=== PATIENT | female | born 1965 | race Caucasian/White ===

== ENCOUNTER → 2017-06-02 | Outpatient (CLI) | payer BC | END | disposition home or self-care (01) | LOC: LABWHC1 16:23 | PROVIDERS: ATTEND Obstetrics & Gynecology | DX: N93.8 Other specified abnormal uterine and vaginal bleeding (principal) | CPT/HCPCS: 36415; 82670; 83001; 83002; 84443 ==

== ENCOUNTER → 2017-08-04 | Outpatient (CLI) | payer BC ==
--- NOTE | 2017-08-06 09:18 | MM ---
Reason for exam: screening (asymptomatic). Last mammogram was performed 1 year and 2 months ago. History: Patient has history of other cancer at age 46. Family history of premenopausal breast cancer in maternal aunt at age 50. Took hormonal contraceptives for 2 years beginning at age 30. Physical Findings: A clinical breast exam by your physician is recommended on an annual basis and results should be correlated with mammographic findings. MG 3D Screening Mammo W/Cad Bilateral CC and MLO view(s) were taken. Prior study comparison: June 02, 2016, bilateral MG 3d screening mammo w/cad. June 01, 2015, right breast MG 3d work up w/cad RT. There are scattered fibroglandular densities. No significant changes when compared with prior studies. ASSESSMENT: Negative, BI-RAD 1 RECOMMENDATION: Routine screening mammogram of both breasts in 1 year.
== END | disposition home or self-care (01) ==
LOC: RADMAMWWP 13:13
PROVIDERS: ATTEND Obstetrics & Gynecology
DX: Z12.31 Encounter for screening mammogram for malignant neoplasm of breast (principal)
CPT/HCPCS: 77063; 77067

== ENCOUNTER → 2018-09-13 | Outpatient (CLI) | payer BC ==
--- NOTE | 2018-09-14 13:48 | MM ---
Reason for exam: screening (asymptomatic). Last mammogram was performed 1 year and 1 month ago. History: Patient is postmenopausal and has history of other cancer at age 46. Family history of premenopausal breast cancer in maternal aunt at age 50. Took hormonal contraceptives for 2 years beginning at age 30. Physical Findings: A clinical breast exam by your physician is recommended on an annual basis and results should be correlated with mammographic findings. MG 3D Screening Mammo W/Cad Bilateral CC and MLO view(s) were taken. Prior study comparison: August 04, 2017, bilateral MG 3d screening mammo w/cad. June 02, 2016, bilateral MG 3d screening mammo w/cad. There are scattered fibroglandular densities. No significant changes when compared with prior studies. ASSESSMENT: Benign, BI-RAD 2 RECOMMENDATION: Routine screening mammogram of both breasts in 1 year.
== END | disposition home or self-care (01) ==
LOC: RADMAMWWP 16:55
PROVIDERS: ATTEND Internal Medicine
DX: Z12.31 Encounter for screening mammogram for malignant neoplasm of breast (principal)
CPT/HCPCS: 77063; 77067

== ENCOUNTER → 2019-07-01 | Outpatient (CLI) | payer BC ==
--- NOTE | 2019-07-01 12:03 | XR ---
EXAMINATION TYPE: XR chest 2V DATE OF EXAM: 07/01/2019 COMPARISON: NONE HISTORY: Cough TECHNIQUE: Frontal and lateral views of the chest are obtained. FINDINGS: There is no focal air space opacity, pleural effusion, or pneumothorax seen. The cardiac silhouette size is within normal limits. The osseous structures are intact. IMPRESSION: No acute cardiopulmonary process.
== END | disposition home or self-care (01) ==
LOC: RADXRMAIN 10:12
PROVIDERS: ATTEND Internal Medicine
DX: R05 Cough (principal)
CPT/HCPCS: 71046

== ENCOUNTER → 2019-12-13 | Outpatient (CLI) | payer BC ==
--- NOTE | 2019-12-15 08:35 | MM ---
Reason for exam: screening (asymptomatic). Last mammogram was performed 1 year and 3 months ago. History: Patient is postmenopausal and has history of other cancer at age 46. Family history of premenopausal breast cancer in maternal aunt at age 50. Took hormonal contraceptives for 2 years beginning at age 30. Physical Findings: A clinical breast exam by your physician is recommended on an annual basis and results should be correlated with mammographic findings. MG 3D Screening Mammo W/Cad Bilateral CC and MLO view(s) were taken. Prior study comparison: September 13, 2018, bilateral MG 3d screening mammo w/cad. August 04, 2017, bilateral MG 3d screening mammo w/cad. There are scattered fibroglandular densities. Finding: There is a 7 mm equal density (isodense), obscured mass in the lower quadrant of the left breast. ASSESSMENT: Incomplete: need additional imaging evaluation, BI-RAD 0 RECOMMENDATION: Special view mammogram of the left breast. If lesion persists on supplemental views, image directed ultrasound is recommended. [facility] will attempt to contact patient to return for supplemental views and ultrasound if indicated.
== END | disposition home or self-care (01) ==
LOC: RADMAMWWP 13:15
PROVIDERS: ATTEND Internal Medicine
DX: Z12.31 Encounter for screening mammogram for malignant neoplasm of breast (principal)
CPT/HCPCS: 77063; 77067

== ENCOUNTER → 2019-12-14 | Outpatient (CLI) | payer BC ==
--- NOTE | 2019-12-15 09:45 | XR ---
EXAMINATION TYPE: XR cervical spine limited DATE OF EXAM: 12/14/2019 COMPARISON: NONE HISTORY: Numbness TECHNIQUE: 2 view submitted FINDINGS: Prevertebral soft tissues to appears within normal limits. There is multilevel hypertrophic and degenerative disc disease. There is a 2 mm retrolisthesis of C3 relative to C4. Alignment demons trated to the level C7. Multilevel facet arthropathy noted. Odontoid grossly intact. IMPRESSION: 1. Limited exam to the level C7 demonstrates multilevel degenerative disc disease as discussed above. 2 mm retrolisthesis of C3 relative to C4. Consider MRI follow-up.
--- NOTE | 2019-12-15 09:55 | XR ---
EXAMINATION TYPE: XR thoracic spine 2V DATE OF EXAM: 12/14/2019 COMPARISON: NONE HISTORY: Pain TECHNIQUE: 2 views submitted FINDINGS: Alignment is anatomic. There is no compression deformities. Vertebral body height and disc interspa lindy are maintained. Diffuse osteopenia and degenerative change of the spine. Curvature the spine not ed. IMPRESSION: 1. Exam limited by motion artifact demonstrates multilevel moderate degenerative disc disease.
== END | disposition home or self-care (01) ==
LOC: RADXRYALE 15:48
PROVIDERS: ATTEND Internal Medicine
DX: M50.90 Cervical disc disorder, unspecified, unspecified cervical region (principal); M50.323 Other cervical disc degeneration at C6-C7 level; M43.16 Spondylolisthesis, lumbar region; M51.34 Other intervertebral disc degeneration, thoracic region
CPT/HCPCS: 72040; 72070

== ENCOUNTER → 2019-12-21 | Outpatient (CLI) | payer BC ==
--- NOTE | 2019-12-22 09:44 | MM ---
Reason for exam: additional evaluation requested from abnormal screening. Last mammogram was performed less than 1 month ago. History: Patient is postmenopausal and has history of other cancer at age 46. Family history of premenopausal breast cancer in maternal aunt at age 50. Took hormonal contraceptives for 2 years beginning at age 30. Took progesterone for 3 years. Physical Findings: Nurse did not find any significant physical abnormalities on exam. MG 3D Work Up W/Cad LT Spot compression CC, spot compression MLO, and LM view(s) were taken of the left breast. Prior study comparison: December 13, 2019, bilateral MG 3d screening mammo w/cad. September 13, 2018, bilateral MG 3d screening mammo w/cad. August 04, 2017, bilateral MG 3d screening mammo w/cad. June 02, 2016, bilateral MG 3d screening mammo w/cad. There are scattered fibroglandular densities. 9 o'clock anterior focal asymmetry appears to disperse on the spot 3D CC view. Partially disperses on the spot 3D MLO view. No underlying mass or distortion is seen. May have been present on the 2014 exam. These results were verbally communicated with the patient and result sheet given to the patient on 12/21/19. ASSESSMENT: Probably benign, BI-RAD 3 RECOMMENDATION: Follow-up diagnostic mammogram of the left breast in 6 months.
== END | disposition home or self-care (01) ==
LOC: RADMAMWWP 14:53
PROVIDERS: ATTEND Internal Medicine
DX: R92.8 Other abnormal and inconclusive findings on diagnostic imaging of breast (principal)
CPT/HCPCS: 77061; 77065

== ENCOUNTER → 2020-06-06 | Outpatient (CLI) | payer BC | END | disposition home or self-care (01) | LOC: LABWHC1 11:34 | PROVIDERS: ATTEND Internal Medicine Cardiovascular Disease | DX: E03.9 Hypothyroidism, unspecified (principal) | CPT/HCPCS: 36415; 84443 ==

== ENCOUNTER → 2020-08-09 | Outpatient (CLI) | payer BC ==
--- NOTE | 2020-08-10 10:39 | MM ---
Reason for exam: follow-up at short interval from prior study. Last mammogram was performed 8 months ago. History: Patient is postmenopausal and has history of other cancer at age 46. Family history of premenopausal breast cancer in maternal aunt at age 50. Took hormonal contraceptives for 2 years beginning at age 30. Took progesterone for 3 years. Physical Findings: Nurse did not find any significant physical abnormalities on exam. MG 3D Diag Mammo W/Cad LT CC and MLO view(s) were taken of the left breast. Prior study comparison: December 21, 2019, left breast MG 3d work up w/cad LT. December 13, 2019, bilateral MG 3d screening mammo w/cad. There are scattered fibroglandular densities. Focal asymmetry No significant new findings when compared with previous films. These results were verbally communicated with the patient and result sheet given to the patient on 08/09/20. ASSESSMENT: Benign, BI-RAD 2 RECOMMENDATION: Return to routine screening mammogram schedule for both breasts.
== END | disposition home or self-care (01) ==
LOC: RADMAMWWP 13:35
PROVIDERS: ATTEND Internal Medicine
DX: R92.8 Other abnormal and inconclusive findings on diagnostic imaging of breast (principal)
CPT/HCPCS: 77061; 77065

== ENCOUNTER → 2020-12-19 | Outpatient (CLI) | payer BC ==
--- NOTE | 2020-12-21 10:43 | MM ---
Reason for exam: screening (asymptomatic). Last mammogram was performed 4 months ago. History: Patient is postmenopausal and has history of other cancer at age 46. Family history of premenopausal breast cancer in maternal aunt at age 50. Took hormonal contraceptives for 2 years beginning at age 30. Took progesterone for 3 years. Physical Findings: A clinical breast exam by your physician is recommended on an annual basis and results should be correlated with mammographic findings. MG Screening Mammo w CAD Bilateral CC and MLO view(s) were taken. Prior study comparison: December 13, 2019, bilateral MG 3d screening mammo w/cad. September 13, 2018, bilateral MG 3d screening mammo w/cad. August 04, 2017, bilateral MG 3d screening mammo w/cad. The breast tissue is almost entirely fat. No significant changes when compared with prior studies. ASSESSMENT: Benign, BI-RAD 2 RECOMMENDATION: Routine screening mammogram of both breasts in 1 year.
== END | disposition home or self-care (01) ==
LOC: RADMAMWWP 09:57
PROVIDERS: ATTEND Internal Medicine
DX: Z12.31 Encounter for screening mammogram for malignant neoplasm of breast (principal)
CPT/HCPCS: 77067

== ENCOUNTER → 2021-10-03 | Outpatient (CLI) | payer BC | END | disposition home or self-care (01) | LOC: LABWHC1 14:24 | PROVIDERS: ATTEND Internal Medicine Cardiovascular Disease | DX: R61 Generalized hyperhidrosis (principal) | CPT/HCPCS: 36415; 87040; 87103 ==

== ENCOUNTER → 2021-12-31 | Outpatient (CLI) | payer BC ==
--- NOTE | 2022-01-02 07:28 | MM ---
Reason for Exam: Screening (asymptomatic). Last screening mammogram was performed 12 month(s) ago. Patient History: Menarche at age 11. First Full-Term at age 20. Left ovary removed at age 51. Right ovary removed at age 51. Hysterectomy at age 47. Postmenopausal. Other cancer, age 46. Patient used Progesterone for 3 years. Hormonal Contraceptives, starting at age 30 for 2 years. Maternal aunt had breast cancer, age 50. Risk Values: Emily 5 year model risk: 1.2%. NCI Lifetime model risk: 6.9%. Prior Study Comparison: 12/21/2019 Left Diagnostic Mammogram, [facility]. 08/09/2020 Left Diagnostic Mammogram, [facility]. 12/19/2020 Bilateral Screening Mammogram, [facility]. Tissue Density: The breast tissue is almost entirely fat. Findings: Analyzed By CAD. There is no suspicious group of microcalcifications or new suspicious mass in either breast. Overall Assessment: Negative, BI-RAD 1 Management: Screening Mammogram of both breasts in 1 year. A clinical breast exam by your physician is recommended on an annual basis and results should be correlated with mammographic findings. Electronically signed and approved by: Sam De La Vega M.D. Radiologis
== END | disposition home or self-care (01) ==
LOC: RADMAMWWP 16:26
PROVIDERS: ATTEND Internal Medicine
DX: Z12.31 Encounter for screening mammogram for malignant neoplasm of breast (principal)
CPT/HCPCS: 77063; 77067

== ENCOUNTER → 2022-10-01 | Outpatient (CLI) | payer BC ==
[2022-10-01 21:51] LABS: Partial Thromboplastin Time 23.1 sec (22.0-30.0); Prothrombin Time 10.3 sec (9.0-12.0)
[2022-10-01 23:15] LABS: Appearance,Urine Clear (Clear); Bilirubin,Urine Negative (Negative); Blood,Urine Negative (Negative); Color,Urine Yellow (Yellow); Ketones,Urine Negative (Negative); Nitrite,Urine Negative (Negative); Specific Gravity,Urine 1.022 (1.001-1.030); Urobilinogen,Urine 0.2 (0.2,1.0)
[2022-10-01 23:22] LABS: Bacteria,Urine Trace /HPF (None Seen)
[2022-10-01 23:35] LABS: HCT 42.7 % (37.2-46.3); HGB 13.7 g/dL (12.0-15.0); MCH 30.3 pg (27.0-32.0); MCHC 32.1 g/dL (32.0-37.0); MCV 94.5 fL (80.0-97.0); Mean Platelet Volume 9.5 fL (9.5-12.2); NRBC Per 100 WBC 0 /100 WBCS (0.0-0.0); Platelet Count 311 X 10*3/uL (140-440); RBC 4.52 X 10*6/uL (4.10-5.20); RDW 12.3 % (11.5-14.5); WBC 7.31 X 10*3/uL (4.50-10.00)
[2022-10-01 23:49] LABS: African American GFR (CKD) 68.6 (60.0-200.0); Albumin 4.2 g/dL (3.8-4.9); Albumin/Globulin Ratio 1.79 (1.60-3.17); BUN/Creat Ratio 8.91 Ratio (12.00-20.00); Blood Urea Nitrogen 9.3 mg/dL (9.0-27.0); Calcium 9.3 mg/dL (8.7-10.3); Carbon Dioxide 26.8 mmol/L (20.0-27.5); Globulin 2.4 g/dL (1.6-3.3); Non-African American GFR(CKD) 59.2 (60.0-200.0); Potassium 3.8 mmol/L (3.5-5.5); Total Bilirubin 0.2 mg/dL (0.30-1.20); Total Protein 6.6 g/dL (6.2-8.2)
== END | disposition home or self-care (01) ==
LOC: LABPAT 14:22
PROVIDERS: ATTEND Orthopaedic Surgery
DX: Z01.812 Encounter for preprocedural laboratory examination (principal); M16.11 Unilateral primary osteoarthritis, right hip
CPT/HCPCS: 80053; 81001; 85027; 85610; 85730; 87070

== ENCOUNTER 2022-10-07 09:08 | Observation (INO) | payer BC ==
[~2022-10-07 09:08] MED LIST: ACETAMINOPHEN TAB 500 MG TAB PO PRN; DEXAMETHASONE SOD PHOSPHATE 4 MG/ML 1 ML VIAL IV ONE; GABAPENTIN 300 MG CAP PO PRN; HYDROmorphone 0.5 MG/0.5 ML SYRINGE IVP PRN; LIDOCAINE 1% (10MG/ML) FOR IV START INTRADERMA PRN; MELOXICAM 7.5 MG TAB PO PRN; MIDAZOLAM 2 MG/2 ML VIAL IV PRN; ONDANSETRON 4 MG/2 ML VIAL IVP ONE; TRANEXAMIC ACID IN NACL,ISO-OS 1,000 MG in SALINE 1 100ML.BAG IVPB PRN
[2022-10-07] MEDS: LACTATED RINGERS 1,000 ML IV SCH (10:00)
[2022-10-07 10:11] LABS: Glucose,Whole Blood 94 mg/dL (70-110)
[2022-10-07] MEDS ORDERED: PHENYLEPHRINE-0.9% NACL SYG 1,000 MCG/10 ML SYRINGE ONE (10:26)
[2022-10-07] MEDS ORDERED: DEXAMETHASONE SOD PHOSPHATE 4 MG/ML 1 ML VIAL ONE (10:26)
[2022-10-07] MEDS ORDERED: fentaNYL (PF) 50 MCG/ML 2 ML AMP ONE (10:26)
[2022-10-07] MEDS ORDERED: ROPIVACAINE 5 MG/ML 30 ML VIAL ONE (10:26)
[2022-10-07] MEDS ORDERED: TRANEXAMIC ACID IN NACL,ISO-OS 1,000 MG/100 ML BAG ONE (10:26)
[2022-10-07] MEDS ORDERED: KETAMINE 10 MG/ML 20 ML VIAL ONE (10:26)
[2022-10-07] MEDS ORDERED: PROPOFOL 10 MG/ML 20 ML VIAL IV ONE (10:26)
[2022-10-07] MEDS ORDERED: MIDAZOLAM 2 MG/2 ML VIAL ONE (10:26)
[2022-10-07] MEDS ORDERED: ePHEDrine 50 MG/ML 1 ML VIAL ONE (10:26)
[2022-10-07] MEDS ORDERED: HYDROmorphone 1 MG/ML 1 ML SYRINGE IVP PRN (10:29)
[2022-10-07] MEDS ORDERED: HYDROmorphone 0.5 MG/0.5 ML SYRINGE IVP PRN ×2 (10:29)
[2022-10-07] MEDS ORDERED: NALOXONE 0.4 MG/ML 1 ML VIAL IV PRN (10:29)
[2022-10-07] MEDS ORDERED: ONDANSETRON 4 MG/2 ML VIAL IVP PRN (10:29)
[2022-10-07] MEDS ORDERED: HYDROcodone/APAP 7.5-325MG 1 EACH TAB PO PRN (10:32)
[2022-10-07] MEDS ORDERED: ceFAZolin 1,000 MG in SODIUM CHLORIDE 0.9% 1,000 ML IRRIGATION ONE (11:00)
[2022-10-07] MEDS ORDERED: ROPIVACAINE 5 MG/ML 30 ML VIAL MISCELLANE ONE ×2 (11:10→12:05)
--- NOTE | 2022-10-07 12:13 | P.OP ---
Date of Procedure: 10/07/22 Preoperative Diagnosis: Severe osteoarthritis right Postoperative Diagnosis: Severe osteoarthritis right hip Procedure(s) Performed: Right total hip arthroplasty with a direct anterior approach Implants: [employer] Polarstem standard size 2 with a collar [employer] R3, 3 hole hemispherical acetabular shell, 52 mm [employer] Reflection 6.5 mm cancellus screw, 20 mm 2, 15 mm [employer] R3, XLPE 20 acetabular liner [employer] Oxinium femoral head 36 m, -3 All components were press-fit. The articulation is Oxinium on polyethylene. Anesthesia: spinal Surgeon: Elvis Oseguera Plate Molder #1: Yanely Mott Estimated Blood Loss (ml): 400 Pathology: other (Femoral head) Condition: stable Disposition: PACU Indications for Procedure: After failure of conservative treatment we discussed the surgical and nonsurgical treatment options at length. Patient wishes to proceed with a total hip arthroplasty with a direct anterior approach. Complications specific to this procedure were discussed at length, including but not limited to infection, leg length discrepancy, dislocation, nerve injury, and fracture. Covid-19 was also discussed at length with the patient, and they are aware of the current policies and procedures. The patient was given the option of delaying surgery, but they elect to proceed knowing these risks. Patient is aware of all these complications and informed consent was obtained Operative Findings: The operative findings are consistent with severe osteoarthritis of the right hip Description of Procedure: The patient was seen and evaluated in the preoperative area and the consent was reviewed. The operative site was marked with a skin marker. The patient verified the procedure and operative site. A FRED block was placed by anesthesia in the preoperative area. The patient was then brought to the operating room and given preoperative antibiotics intravenously. 1 g of Tranexamic acid was also given intravenously. A spinal anesthetic was administered by the anesthesia department. The patient was then placed on the [place] table with the bony prominences well-padded. The hip area was then prepped with a ChloraPrep solution and draped in the usual sterile fashion. A universal timeout was then performed, which confirmed the patient's name, surgical site, ALLERGIES, and procedure being performed on the consent. Next the incision site was located at 1 cm distal and 4 cm lateral to the anterior superior iliac spine. The skin and subcutaneous tissues were sharply incised. Incision was carefully dissected down to the fascia overlying the tensor fascia jasbir muscle. This fascia was then incised in line with the muscle fibers. Care was taken to stay laterally in order to avoid injuring the lateral femoral cutaneous nerve. Next, using blunt finger dissection, the tensor fascia jasbir muscle was dissected off its investing fascia. The muscle was then carefully retracted laterally with a cobra retractor over the lateral neck of the femur. Next, the circumflex vessels were identified and cauterized using the Aquamantis device. The anterior hip capsule was then exposed. The capsule was then opened and an inverted T fashion. The retractors were then placed intracapsularly. The retractors were maintained intracapsular throughout the procedure. The proximal femur was then visualized. Fluoroscopic x-rays were then taken in order to evaluate the preoperative leg lengths. A small amount of traction was placed on the leg. The femoral neck was then osteotomized at the appropriate level above the lesser trochanter. A small wedge of bone was then removed from the remaining femoral head. Next, using a corkscrew the femoral head was removed from the acetabulum. On gross visual inspection, the femoral head had complete loss of articular cartilage and multiple periarticular osteophytes. The femoral head was then measured. Attention was then turned to the acetabulum. The acetabulum was exposed and any remaining labrum was excised. Sequential reaming of the acetabulum was performed using fluoroscopic guidance until there was a good bed of bleeding cancellus bone. When the appropriate size was reached, a trial was then placed. The position and fit of the trial was checked with fluoroscopy. The trial was then removed. Then, using fluoroscopic guidance, the final implant was impacted at 20 of anteversion and 40 of abduction, and fully seated in the acetabulum. 3 screws were then placed in the acetabulum. Again fluoroscopy was used to check position of the screws. Next, the liner was then impacted, with a 20 elevated liner located in the anterior superior quadrant. Component locking was confirmed. Attention was then directed to the femur. With the aid of the [place] table, the femur was externally rotated to approximately 130, extended, and adducted under the opposite leg. A side hook was then placed under the proximal femur, and the side hook elevator was used to elevate the proximal femur while releasing the capsule. Retractors were then placed. A capsular release was performed, as well as a release of the conjoined tendon, which afforded excellent visualization of the proximal femur. Next, a box osteotome was used to lateralize the proximal femur. A cloth trimmer hand was then used to locate the femoral canal. Sequential broaching was then performed with appropriate size which afforded excellent fixation in the proximal femur. A trial was then placed with appropriate head and neck, and the hip was gently reduced with the aid of the [place] table. Fluoroscopy was then used to check position of the components, as well as to evaluate the leg lengths and offset. The leg lengths and offset were measured as closely as possible to ensure stability of the hip. The hip was then gently dislocated and the trials were then removed. Final implants were then impacted and the hip was again reduced. Final fluoroscopic x-rays confirmed that the components were in anatomic position. The leg lengths and offset were measured and were found to coincide with the trial measurements. The hip was also taken through range of motion, and found to be stable. The hip was then copiously irrigated with antibiotic solution with pulsatile lavage. The hip was then irrigated with Irrisept solution. The soft tissues were then injected with a ropivacaine solution. A second dose of 1 g of Tranexamic acid was also given intravenously. The fascia was then closed with 2-0 strata fix suture. The subcutaneous tissue was closed with 3-0 Vicryl. The subcuticular tissue was closed with 3-0 strata fix suture. The skin was then closed with Exofin skin glue. After the glue and dried, and Optifoam silver impregnated dressing was applied. The patient was then transferred to the recovery room in stable condition. The assistant center manager JUSTINE Huerta was required due to the complexity of surgery, and the need for skilled printing assistant for positioning, draping, exposure, retraction, and closure of the wound.
[2022-10-07] MEDS ORDERED: LACTATED RINGERS 1,000 ML IV ONE (12:20)
--- NOTE | 2022-10-07 13:00 | XR ---
Intraoperative/procedural fluoroscopic services were provided for right total hip arthroplasty. Total fluoroscopy time is 1 minute 15 seconds with a total of 3 submitted images to PACS. Total DAP 11.370 . Please see the operative note for further details.
--- NOTE | 2022-10-07 13:24 | P.ANPRN ---
Procedure Note - Anesthesia - Nerve Block Performed Right Zenon Single Time Out Performed: Yes Date of Procedure: 10/07/22 Procedure Start Time: 10:24 Procedure Stop Time: 10:33 Location of Patient: PreOp Indication: Acute Post-Operative Pain, Requested by Surgeon Sedation Type: Sedate with meaningful contact maintained Preparation: Sterile Prep Position: Supine Needle Types: Pajunk Needle Gauge: 21 Ultrasound used to visualize needle placement: Yes Ultrasound used to observe medication spread: Yes Blood Aspirated: No Pain Paresthesia on Injection Noted: No Resistance on Injection: Normal Image Stored and Saved: Yes Events: Uneventful and Well Tolerated (Ropivacaine 0.5% 20 mL plus dexamethasone 4 mg)
[2022-10-07 13:28] LABS: Glucose,Whole Blood 98 mg/dL (70-110)
[2022-10-07] MEDS ORDERED: SODIUM CHLORIDE 0.9% 1,000 ML IV ONE (14:06)
[2022-10-07] MEDS: SODIUM CHLORIDE 0.9% 1,000 ML IV SCH (15:24)
[2022-10-07] MEDS ORDERED: CLOBETASOL PROP 0.05% CR 15GM TOPICAL PRN (16:17)
[2022-10-07] MEDS ORDERED: BETAMETHASONE DIPROPIONATE TOPICAL PRN (16:17)
[2022-10-07] MEDS ORDERED: CALCIPOTRIENE TOPICAL PRN (16:17)
[2022-10-07] MEDS: PANTOPRAZOLE 40 MG/10 ML VIAL IVP SCH (17:24)
[2022-10-07] MEDS: PROPAFENONE 150 MG TAB PO SCH (17:24)
[2022-10-07 17:53] LABS: Glucose,Whole Blood 134 mg/dL (70-110)
[2022-10-07] MEDS ORDERED: METOPROLOL SUCCINATE (ER) 25 MG TAB.ER.24H PO SCH (21:00)
[2022-10-07] MEDS: ATORVASTATIN 10 MG TAB PO SCH (21:05)
[2022-10-07] MEDS: HYDROcodone/APAP 7.5-325MG 1 EACH TAB PO PRN (21:05)
[2022-10-07] MEDS: METOPROLOL TARTRATE 25 MG TAB PO SCH (21:06)
[2022-10-07] MEDS: SENNOSIDES-DOCUSATE SODIUM 1 EACH TAB PO SCH (21:06)
[2022-10-07] MEDS: metFORMIN 500 MG TAB PO SCH (21:06)
[2022-10-08] MEDS: PROPAFENONE 150 MG TAB PO SCH ×4 (00:30→23:59)
--- NOTE | 2022-10-08 02:48 | CONS ---
CONSULTATION REASON FOR CONSULTATION: Advice regarding diabetes mellitus and other medical issues requested by Orthopedic surgery. HISTORY OF PRESENT ILLNESS: This is a 56-year-old woman with a past history of atrial fibrillation, diabetes mellitus, and multiple other medical problems, being followed Dr. Gomez in the outpatient setting, underwent right hip arthroplasty. Postoperatively, the patient has some vomiting and abdominal discomfort. Otherwise, there is no history of any fever, rigors, or chills at this time. PAST MEDICAL HISTORY: Diabetes mellitus, GERD, rest of the history and rest of the chart is also reviewed. HOME MEDICATIONS: Reviewed metformin, doses and rest of medications reviewed. ALLERGIES: Latex and codeine. FAMILY HISTORY: History of CA larynx. SOCIAL HISTORY: Previous history of smoking, occasional alcohol intake. REVIEW OF SYSTEMS: A 14-point review is negative except as mentioned earlier. PHYSICAL EXAMINATION: VITAL SIGNS: Pulse 63, blood pressure 131/82, respirations 18. HEENT: Conjunctivae normal. NECK: No jugular venous distention. CARDIOVASCULAR: S1, S2. RESPIRATIONS: Diminished at the bases. No rhonchi, no crackles. ABDOMEN: Soft, obese, mild diffuse discomfort. No guarding, no rigidity. No masses palpable. LEGS: Status post right hip arthroplasty. NERVOUS SYSTEM: No focal deficits. LABORATORY DATA: Reviewed. ASSESSMENT: 1. Status post right hip arthroplasty. 2. Postoperative nausea and vomiting. 3. Atrial fibrillation. 4. Diabetes mellitus. 5. Hypertension. 6. Multiple medical issues. RECOMMENDATIONS: This 56-year-old woman presented after surgery. At this time, I recommend IV Protonix, symptomatic treatment, resume the home medication and once they are confirmed, DVT prophylaxis, spirometry will follow patient closely with you. The patient may be asked to follow up with Dr. Gomez after discharge. MMODL / IJN: [id number] /
[2022-10-08] MEDS: SODIUM CHLORIDE 0.9% 1,000 ML IV SCH ×3 (04:57→12:37)
--- NOTE | 2022-10-08 07:46 | P.DS ---
Providers Expected date of discharge: 10/08/22 Attending physician: Elvis Oseguera Consults: 10/07/22 10:29 Consult Physician Routine Consulting Provider: Tony Brooke Consult Reason/Comments: medical management Do you want consulting provider notified?: Yes Primary care physician: Alis Gomez - Discharge Diagnosis(es) (1) Primary localized osteoarthritis of right hip Current Visit: Yes Status: Acute (2) Status post total hip replacement, right Current Visit: Yes Status: Acute Hospital Course: This is a 56-year-old female with known history of degenerative arthritis of the right hip. The patient presents for evaluation. After discussion and consideration patient elects to proceed with total hip arthroplasty with direct anterior approach. The patient is seen preoperatively by primary care physician and cleared for surgery. Patient [facility] 10[facility] for total hip arthroplasty with direct anterior approach. The procedure is performed without complication or sequelae. The patient is doing well postoperatively. Labs and vital signs are stable on day of discharge. On day of discharge patient's hip incision is healing well. There is minimal erythema. There is no drainage noted at this time. There is minimal soft tissue swelling to the hip and thigh. Patient has full foot and ankle motion without difficulty or pain. Neurovascular status to the lower extremity is intact. Patient is discharged to home in good condition. Please see med rec for accurate list of home medications. Patient Condition at Discharge: Good Plan - Discharge Summary Discharge Rx Participant: No New Discharge Prescriptions: New HYDROcodone/APAP 7.5-325MG [Vina 7.5-325] 1 - 2 tab PO Q6H PRN #32 tab PRN Reason: Pain Sennosides [Senokot] 2 tab PO DAILY PRN #60 tablet PRN Reason: Constipation No Action Cetirizine HCl [Zyrtec] 10 mg PO DAILY Enstiler 0.005 % TOPICAL DAILY PRN PRN Reason: Rash Clobestasol 0.05 % TOPICAL BID PRN PRN Reason: Rash Omeprazole 20 mg PO DAILY Multivitamin [Multivitamins Adult Gummies] 1 tab PO DAILY EPINEPHrine (Auto Inject) [Epipen] 1 injection SQ ONCE PRN PRN Reason: Allergic Reaction Apremilast [Otezla] 30 mg PO BID Metoprolol Tartrate [Lopressor] 25 mg PO BID metFORMIN HCL [Glucophage] 500 mg PO BID Meloxicam [Mobic] 7.5 mg PO DAILY Atorvastatin [Lipitor] 10 mg PO HS Venlafaxine HCl ER [Effexor Xr] 37.5 mg PO DAILY Apixaban [Eliquis] 5 mg PO BID Propafenone HCl 150 mg PO Q8H Fluticasone Nasal [place] [Flonase Nasal [place]] 1 spray INHALATION DAILY PRN PRN Reason: Congestion Calcium Carbonate/Vitamin D3 [Calcium 600 mg-D3 10 Mcg (400 Iu)] 1 tab PO DAILY Discharge Medication List Apixaban [Eliquis] 5 mg PO BID 10/06/22 [History] Apremilast [Otezla] 30 mg PO BID 10/06/22 [History] Atorvastatin [Lipitor] 10 mg PO HS 10/06/22 [History] Calcium Carbonate/Vitamin D3 [Calcium 600 mg-D3 10 Mcg (400 Iu)] 1 tab PO DAILY 10/06/22 [History] Cetirizine HCl [Zyrtec] 10 mg PO DAILY 10/06/22 [History] Clobestasol 0.05 % TOPICAL BID PRN 10/06/22 [History] EPINEPHrine (Auto Inject) [Epipen] 1 injection SQ ONCE PRN 10/06/22 [History] Enstiler 0.005 % TOPICAL DAILY PRN 10/06/22 [History] Fluticasone Nasal [place] [Flonase Nasal [place]] 1 spray INHALATION DAILY PRN 10/06/22 [History] Meloxicam [Mobic] 7.5 mg PO DAILY 10/06/22 [History] Multivitamin [Multivitamins Adult Gummies] 1 tab PO DAILY 10/06/22 [History] Omeprazole 20 mg PO DAILY 10/06/22 [History] Propafenone HCl 150 mg PO Q8H 10/06/22 [History] Venlafaxine HCl ER [Effexor Xr] 37.5 mg PO DAILY 10/06/22 [History] metFORMIN HCL [Glucophage] 500 mg PO BID 10/06/22 [History] HYDROcodone/APAP 7.5-325MG [Vina 7.5-325] 1 - 2 tab PO Q6H PRN #32 tab 10/07/22 [Rx] Metoprolol Tartrate [Lopressor] 25 mg PO BID 10/07/22 [History] Sennosides [Senokot] 2 tab PO DAILY PRN #60 tablet 10/07/22 [Rx] Follow up Appointment(s)/Referral(s): Elvis Oseguera DO [Doctor of Osteopathic Medicine] - 2 Weeks Activity/Diet/Wound Care/Special Instructions: Weightbearing as tolerated with walker. Leave dressing intact. Dressing may be removed by home care nurse or by patient in 7 days. Then change dressing twice daily until follow up. May shower with initial dressing intact and after removal. If dressing become saturated, please remove. Please resume Eliquis. Recommend use of compression stockings daily until follow up to help prevent s welling and blood clots. May remove at night before sleeping. [facility] with [facility] in 2 weeks and call with any questions or concerns, . Discharge Disposition: HOME WITH HOME HEALTH SERVICES
[2022-10-08 07:56] LABS: Basophils % (A) 0 %; Eosinophils % (A) 0 %; HCT 35.5 % (34.0-46.0); HGB 11.9 gm/dL (11.4-16.0); Lymphocytes # (A) 1.4 k/uL (1.0-4.8); Lymphocytes % (A) 12 %; MCHC 33.5 g/dL (31.0-37.0); MCV 92.6 fL (80.0-100.0); Monocytes # (A) 0.9 k/uL (0-1.0); Monocytes % (A) 8 %; Neutrophils # (A) 9.3 k/uL (1.3-7.7); Neutrophils % (A) 79 %; Platelet Count 261 k/uL (150-450); RBC 3.84 m/uL (3.80-5.40); RDW 12.3 % (11.5-15.5); WBC 11.7 k/uL (3.8-10.6)
[2022-10-08] MEDS: MULTIVITAMINS, THERA 1 EACH TAB PO SCH (08:05)
[2022-10-08] MEDS: CALCIUM CARB-VIT D 500 MG-5 MCG TAB PO SCH (08:05)
[2022-10-08] MEDS: METOPROLOL TARTRATE 25 MG TAB PO SCH (08:05)
[2022-10-08] MEDS: LORATADINE 10 MG TAB PO SCH (08:05)
[2022-10-08] MEDS: APIXABAN 5 MG TAB PO SCH ×2 (08:05→21:04)
[2022-10-08] MEDS: metFORMIN 500 MG TAB PO SCH ×2 (08:05→21:03)
[2022-10-08] MEDS: VENLAFAXINE HCL ER 37.5 MG CAP PO SCH (08:05)
[2022-10-08 08:13] LABS: ALT 28 U/L (4-34); AST 48 U/L (14-36); African American GFR (CKD) >90 (>60 ml/min/1.73 sqM); Albumin 3.3 g/dL (3.5-5.0); Albumin/Globulin Ratio 1.4; Alkaline Phosphatase 54 U/L (38-126); Anion Gap 9 mmol/L; Blood Urea Nitrogen 12 mg/dL (7-17); Calcium 8.6 mg/dL (8.4-10.2); Carbon Dioxide 23 mmol/L (22-30); Chloride 107 mmol/L (98-107); Globulin 2.3 g/dL; Glucose 121 mg/dL (74-99); Non-African American GFR(CKD) >90 (>60 ml/min/1.73 sqM); Potassium 4.6 mmol/L (3.5-5.1); Sodium 139 mmol/L (137-145); Total Bilirubin 0.2 mg/dL (0.2-1.3); Total Protein 5.6 g/dL (6.3-8.2)
[2022-10-08] MEDS: PANTOPRAZOLE 40 MG/10 ML VIAL IVP SCH (08:45)
[2022-10-08] MEDS: HYDROcodone/APAP 7.5-325MG 1 EACH TAB PO PRN ×3 (08:45→23:59)
[2022-10-08] MEDS ORDERED: SODIUM CHLORIDE 0.9% 500 ML 500 ML IV ONE (12:15)
[2022-10-08] MEDS: LACTATED RINGERS 1,000 ML IV SCH (12:41)
--- NOTE | 2022-10-08 12:58 | XR ---
EXAMINATION TYPE: XR chest 1V portable DATE OF EXAM: 10/08/2022 COMPARISON: NONE HISTORY: Short of breath TECHNIQUE: Single frontal view of the chest is obtained. FINDINGS: There is no focal air space opacity, pleural effusion, or pneumothorax seen. The cardiac silhouette size is within normal limits. The osseous structures are intact. IMPRESSION: No acute process.
[2022-10-08 12:59] LABS: ALT 28 U/L (4-34); AST 46 U/L (14-36); African American GFR (CKD) >90 (>60 ml/min/1.73 sqM); Albumin 3.5 g/dL (3.5-5.0); Albumin/Globulin Ratio 1.5; Alkaline Phosphatase 50 U/L (38-126); Anion Gap 8 mmol/L; Blood Urea Nitrogen 12 mg/dL (7-17); Calcium 8.6 mg/dL (8.4-10.2); Carbon Dioxide 25 mmol/L (22-30); Chloride 106 mmol/L (98-107); Globulin 2.3 g/dL; Glucose 109 mg/dL (74-99); Non-African American GFR(CKD) >90 (>60 ml/min/1.73 sqM); Potassium 4.2 mmol/L (3.5-5.1); Sodium 139 mmol/L (137-145); Total Bilirubin 0.2 mg/dL (0.2-1.3); Total Protein 5.8 g/dL (6.3-8.2)
--- NOTE | 2022-10-08 14:37 | PN ---
PROGRESS NOTE DATE OF SERVICE: 10/08/2022 SUBJECTIVE: This is a 56-year-old woman who was admitted after right hip arthroplasty, had a syncopal event yesterday. The patient is complaining of weakness today. No chest pain, no palpitation. OBJECTIVE: VITAL SIGNS: Pulse is 90, blood pressure 109/68, respirations 18. CHEST: Clear to auscultation cardiovascular S1, S2. ABDOMEN: Soft. NERVOUS SYSTEM: No focal deficits. LABORATORY DATA: Reviewed. ASSESSMENT: 1. Status post right hip arthroplasty. 2. Postop nausea, vomiting. 3. Syncope. 4. Atrial fibrillation. 5. Diabetes mellitus, type 2. 6. Hypertension. 7. Multiple medical issues. RECOMMENDATIONS: Recommended to continue current medications, symptomatic treatment. Otherwise, I would recommend a troponin cardiac workup and continue to follow monitor. Further recommendations to follow. MMODL / IJN: [id number] /
[2022-10-08] MEDS: SENNOSIDES-DOCUSATE SODIUM 1 EACH TAB PO SCH (21:04)
[2022-10-08] MEDS: ATORVASTATIN 10 MG TAB PO SCH (21:04)
[2022-10-09] MEDS: PANTOPRAZOLE 40 MG/10 ML VIAL IVP SCH ×3 (02:32→20:50)
[2022-10-09] MEDS: SODIUM CHLORIDE 0.9% 1,000 ML IV SCH ×3 (06:50→13:30)
[2022-10-09] MEDS: LACTATED RINGERS 1,000 ML IV SCH (06:50)
[2022-10-09] MEDS: HYDROcodone/APAP 7.5-325MG 1 EACH TAB PO PRN ×2 (08:34→13:38)
[2022-10-09] MEDS: PROPAFENONE 150 MG TAB PO SCH ×3 (09:38→23:27)
[2022-10-09] MEDS: APIXABAN 5 MG TAB PO SCH ×2 (09:38→20:50)
[2022-10-09] MEDS: metFORMIN 500 MG TAB PO SCH ×2 (09:39→20:50)
[2022-10-09] MEDS: LORATADINE 10 MG TAB PO SCH (09:39)
[2022-10-09] MEDS: VENLAFAXINE HCL ER 37.5 MG CAP PO SCH (09:39)
[2022-10-09] MEDS: CALCIUM CARB-VIT D 500 MG-5 MCG TAB PO SCH (09:39)
[2022-10-09] MEDS: MULTIVITAMINS, THERA 1 EACH TAB PO SCH (09:39)
--- NOTE | 2022-10-09 12:53 | P.PN ---
Subjective Progress Note Date: 10/09/22 This is a 56-year-old female who is status post right total hip arthroplasty. This is postoperative day #2 and patient is seen and evaluated at bedside today. Patient states that she is feeling much better today and has not had any lightheadedness. Patient denies any new complaints today. Objective - Vital Signs Vital signs: Vital Signs Temp 97.7 F 10/09/22 07:24 Pulse 110 H 10/09/22 07:24 Resp 17 10/09/22 07:24 BP 145/78 10/09/22 07:24 Pulse Ox 93 L 10/09/22 07:24 FiO2 Intake & Output 10/08/22 10/09/22 10/09/22 18:59 06:59 18:59 Output Total 600 Balance -600 Output: Urine 600 Other: Voiding Method Bedside Commode Bedside Commode Bedside Commode # Voids 1 - Exam Vital signs are stable. Patient is in no acute distress and is alert and oriented 3. Calf is soft and nontender to palpation. Dressing is clean, dry, and intact. Patient has full foot and ankle motion without pain or difficulty. Sensation intact. Neurovascular status and circulatory status are intact. - Labs CBC & Chem 7: 10/08/22 07:03 10/08/22 12:34 Labs: Abnormal Lab Results - Last 24 Hours (Table) 10/08/22 Range/Units 12:34 Glucose 109 H (74-99) mg/dL AST 46 H (14-36) U/L Total Protein 5.8 L (6.3-8.2) g/dL Assessment and Plan (1) Primary localized osteoarthritis of right hip Current Visit: Yes Status: Acute Code(s): M16.11 - UNILATERAL PRIMARY OSTEOARTHRITIS, RIGHT HIP SNOMED Code(s): 554016559557584 (2) Status post total hip replacement, right Current Visit: Yes Status: Acute Code(s): Z96.641 - PRESENCE OF RIGHT ARTIFICIAL HIP JOINT SNOMED Code(s): 066756759799 Plan: Continue routine postop care and pain control. Patient has resumed Eliquis. Weightbearing as tolerated with a walker. Leave dressing in place for 7 days. Appreciate input from internal medicine and cardiology. Anticipate discharge home with homecare tomorrow.
[2022-10-09] MEDS: MAGNESIUM HYDROXIDE 2,400 MG/10 ML CUP PO PRN (13:37)
[2022-10-09] MEDS: METOPROLOL TARTRATE 25 MG TAB PO SCH ×2 (17:33→20:53)
[2022-10-09] MEDS: ATORVASTATIN 10 MG TAB PO SCH (20:50)
[2022-10-09] MEDS: SENNOSIDES-DOCUSATE SODIUM 1 EACH TAB PO SCH (20:50)
--- NOTE | 2022-10-10 00:46 | PN ---
PROGRESS NOTE DATE OF SERVICE: 10/09/2022 SUBJECTIVE: This is an -[id number]-[id number] woman, who was admitted after right hip arthroplasty, had a syncopal episode. The patient is also tachycardic slightly. Cardiac workup was basically negative. Troponins are negative. The blood pressure is improved. No chest pain. No palpitation. OBJECTIVE: VITAL SIGNS: Pulse is 110, blood pressure is 140/70, respirations 17. HEENT: Conjunctivae normal. CARDIOVASCULAR: S1, S2. RESPIRATIONS: Clear to auscultation. ABDOMEN: Soft, obese. LEGS: Status post surgery. LABORATORY DATA: Reviewed. WBC 11.7. The rest of the labs are reviewed. ASSESSMENT: 1. Status post right hip arthroplasty. 2. Postoperative nausea, vomiting. 3. Syncope, possibly vasovagal versus dehydration. 4. History of atrial fibrillation. 5. Diabetes mellitus, type 2. 6. Hypertension. 7. Multiple medical issues. RECOMMENDATIONS AND DISCUSSION: Recommend to continue current medications. Continue symptomatic treatment. Labs are improved at this time. Initiate beta blockers. Otherwise, rest of the recommendations per Orthopedic Surgery. Further recommendations to follow. MMODL / IJN: [id number] /
[2022-10-10 02:16] LABS: Appearance,Urine Cloudy (Clear); Bilirubin,Urine Negative (Negative); Blood,Urine Negative (Negative); Color,Urine Yellow; Glucose,Urine (UA) Negative (Negative); Ketones,Urine Trace (Negative); Leukocyte Esterase,Urine Negative (Negative); Nitrite,Urine Negative (Negative); Protein,Urine Negative (Negative); RBC,Urine 1 /hpf (0-5); Specific Gravity,Urine 1.016 (1.001-1.035); Urobilinogen,Urine <2.0 mg/dL (<2.0)
[2022-10-10] MEDS: ACETAMINOPHEN TAB 325 MG TAB PO PRN ×2 (06:05→12:46)
[2022-10-10] MEDS: MAGNESIUM HYDROXIDE 2,400 MG/10 ML CUP PO PRN ×2 (06:06→10:02)
[2022-10-10] MEDS: SODIUM CHLORIDE 0.9% 1,000 ML IV SCH ×4 (07:42→17:54)
[2022-10-10] MEDS: LACTATED RINGERS 1,000 ML IV SCH (07:43)
[2022-10-10] MEDS: PANTOPRAZOLE 40 MG/10 ML VIAL IVP SCH (09:57)
[2022-10-10] MEDS: LORATADINE 10 MG TAB PO SCH (09:58)
[2022-10-10] MEDS: APIXABAN 5 MG TAB PO SCH (09:58)
[2022-10-10] MEDS: VENLAFAXINE HCL ER 37.5 MG CAP PO SCH (09:58)
[2022-10-10] MEDS: PROPAFENONE 150 MG TAB PO SCH ×2 (09:58→15:20)
[2022-10-10] MEDS: MULTIVITAMINS, THERA 1 EACH TAB PO SCH (09:58)
[2022-10-10] MEDS: METOPROLOL TARTRATE 25 MG TAB PO SCH (09:58)
[2022-10-10] MEDS: CALCIUM CARB-VIT D 500 MG-5 MCG TAB PO SCH (09:58)
[2022-10-10] MEDS: metFORMIN 500 MG TAB PO SCH (10:07)
[2022-10-10 11:21] LABS: Basophils # (A) 0.02 X 10*3/uL (0.00-0.10); Basophils % (A) 0.2 %; Eosinophils # (A) 0.08 X 10*3/uL (0.04-0.35); Eosinophils % (A) 0.8 %; HCT 33.5 % (37.2-46.3); HGB 10.5 g/dL (12.0-15.0); Immature Grans, Automated 0.3 %; Lymphocytes # (A) 1.87 X 10*3/uL (0.90-5.00); Lymphocytes % (A) 19.6 %; MCH 29.7 pg (27.0-32.0); MCHC 31.3 g/dL (32.0-37.0); MCV 94.6 fL (80.0-97.0); Mean Platelet Volume 9.6 fL (9.5-12.2); Monocytes # (A) 0.96 X 10*3/uL (0.20-1.00); NRBC Per 100 WBC 0 /100 WBCS (0.0-0.0); Neutrophils % (A) 69.1 %; Platelet Count 248 X 10*3/uL (140-440); RBC 3.54 X 10*6/uL (4.10-5.20); RDW 12.4 % (11.5-14.5); WBC 9.56 X 10*3/uL (4.50-10.00)
--- NOTE | 2022-10-10 12:33 | P.DS ---
Providers Date of admission: 10/10/22 08:38 Expected date of discharge: 10/10/22 Attending physician: Elvis Oseguera Consults: 10/07/22 10:29 Consult Physician Routine Consulting Provider: Tony Brooke Consult Reason/Comments: medical management Do you want consulting provider notified?: Yes Primary care physician: Alis Gomez - Discharge Diagnosis(es) (1) Primary localized osteoarthritis of right hip Current Visit: Yes Status: Acute (2) Status post total hip replacement, right Current Visit: Yes Status: Acute Hospital Course: This is a 56-year-old female with known history of degenerative arthritis of the right hip. The patient presents for evaluation. After discussion and consideration patient elects to proceed with total hip arthroplasty. The patient is seen preoperatively by Dr. Oseguera and cleared for surgery. Patient is admitted to [facility] on 10/07/2022 for total hip arthroplasty. The procedures performed without complication or sequelae. The patient is doing well postoperatively. Labs and vital signs are stable on day of discharge. Patient did have an episode of hypotension postoperatively, but this has been evaluated and has resolved. On day of discharge patient's hip incision is healing well. There is minimal erythema. There is no drainage noted at this time. There is minimal soft tissue swelling to the hip and thigh. Patient has full foot and ankle motion without difficulty or pain. Neurovascular status to the right lower extremity is intact. Patient is discharged home in good condition. Please see med rec for accurate list of home medications. Patient Condition at Discharge: Good Plan - Discharge Summary Discharge Rx Participant: No New Discharge Prescriptions: New HYDROcodone/APAP 7.5-325MG [[place] 7.5-325] 1 - 2 tab PO Q6H PRN #32 tab PRN Reason: Pain Sennosides [Senokot] 2 tab PO DAILY PRN #60 tablet PRN Reason: Constipation No Action Cetirizine HCl [Zyrtec] 10 mg PO DAILY Enstiler 0.005 % TOPICAL DAILY PRN PRN Reason: Rash Clobestasol 0.05 % TOPICAL BID PRN PRN Reason: Rash Omeprazole 20 mg PO DAILY Multivitamin [Multivitamins Adult Gummies] 1 tab PO DAILY EPINEPHrine (Auto Inject) [Epipen] 1 injection SQ ONCE PRN PRN Reason: Allergic Reaction Apremilast [Otezla] 30 mg PO BID Metoprolol Tartrate [Lopressor] 25 mg PO BID metFORMIN HCL [Glucophage] 500 mg PO BID Meloxicam [Mobic] 7.5 mg PO DAILY Atorvastatin [Lipitor] 10 mg PO HS Venlafaxine HCl ER [Effexor Xr] 37.5 mg PO DAILY Apixaban [Eliquis] 5 mg PO BID Propafenone HCl 150 mg PO Q8H Fluticasone Nasal [place] [Flonase Nasal [place]] 1 spray INHALATION DAILY PRN PRN Reason: Congestion Calcium Carbonate/Vitamin D3 [Calcium 600 mg-D3 10 Mcg (400 Iu)] 1 tab PO DAILY Discharge Medication List Apixaban [Eliquis] 5 mg PO BID 10/06/22 [History] Apremilast [Otezla] 30 mg PO BID 10/06/22 [History] Atorvastatin [Lipitor] 10 mg PO HS 10/06/22 [History] Calcium Carbonate/Vitamin D3 [Calcium 600 mg-D3 10 Mcg (400 Iu)] 1 tab PO DAILY 10/06/22 [History] Cetirizine HCl [Zyrtec] 10 mg PO DAILY 10/06/22 [History] Clobestasol 0.05 % TOPICAL BID PRN 10/06/22 [History] EPINEPHrine (Auto Inject) [Epipen] 1 injection SQ ONCE PRN 10/06/22 [History] Enstiler 0.005 % TOPICAL DAILY PRN 10/06/22 [History] Fluticasone Nasal [place] [Flonase Nasal [place]] 1 spray INHALATION DAILY PRN 10/06/22 [History] Meloxicam [Mobic] 7.5 mg PO DAILY 10/06/22 [History] Multivitamin [Multivitamins Adult Gummies] 1 tab PO DAILY 10/06/22 [History] Omeprazole 20 mg PO DAILY 10/06/22 [History] Propafenone HCl 150 mg PO Q8H 10/06/22 [History] Venlafaxine HCl ER [Effexor Xr] 37.5 mg PO DAILY 10/06/22 [History] metFORMIN HCL [Glucophage] 500 mg PO BID 10/06/22 [History] HYDROcodone/APAP 7.5-325MG [[place] 7.5-325] 1 - 2 tab PO Q6H PRN #32 tab 10/07/22 [Rx] Metoprolol Tartrate [Lopressor] 25 mg PO BID 10/07/22 [History] Sennosides [Senokot] 2 tab PO DAILY PRN #60 tablet 10/07/22 [Rx] Follow up Appointment(s)/Referral(s): Alis Gomez MD [Primary Care Provider] - 10/14/22 11:40 am Elvis Oseguera DO [Doctor of Osteopathic Medicine] - 10/24/22 1:00 pm Patient Instructions/Handouts: Anterior Hip Replacement (DC) Activity/Diet/Wound Care/Special Instructions: Weightbearing as tolerated with walker. Leave dressing intact. Dressing may be removed by home care nurse or by patient in 7 days. Then change dressing twice daily until follow up. May shower with initial dressing intact and after removal. If dressing become saturated, please remove. Please resume Eliquis. Recommend use of compression stockings daily until follow up to help prevent swelling and blood clots. May remove at night before sleeping. Please follow-up with [facility] in 2 weeks and call with any questions or concerns, . Discharge Disposition: HOME WITH HOME HEALTH SERVICES
--- NOTE | 2022-10-10 13:14 | CT ---
EXAMINATION TYPE: CT angio chest DATE OF EXAM: 10/10/2022 COMPARISON: NONE HISTORY: Pulmonary embolism. Elevated d-dimer. Recent right hip replacement surgery. CT DLP: 996.1 mGycm. Automated Exposure Control for Dose Reduction was Utilized. CONTRAST: CTA scan of the thorax is performed with IV Contrast, patient injected with 100 mL of Isovue 370, pul monary embolism protocol. MIP Images are created on CT scanner and reviewed. FINDINGS: LUNGS: The lungs are grossly clear, there is no concerning parenchymal mass or nodule identified. T here is no pleural effusion or pneumothorax seen. The tracheobronchial tree is patent. MEDIASTINUM: There is satisfactory enhancement of the pulmonary artery and its branches, there is no CT evidence for pulmonary embolism. Some enhancement of the thoracic aorta without aneurysm or dissec tion. There are no greater than 1 cm hilar or mediastinal lymph nodes. No cardiomegaly or pericard ial effusion is seen. Partially calcified 1.5 cm hypodense right thyroid nodule coronal image 82. OTHER: No additional significant abnormality is seen. IMPRESSION: No CT evidence for acute pulmonary embolism. No suspicious acute pulmonary process. There is 1.5 cm right thyroid nodule noted. Nonemergent thyroid ultrasound follow-up is advised to further evaluate and characterize if this is not known finding.
[2022-10-10 14:04] VITALS: PULSE 88; RESP 15; TEMP 98.3
[2022-10-10 14:23] VITALS: BP 108/71
--- NOTE | 2022-10-11 06:11 | PN ---
PROGRESS NOTE DATE OF SERVICE: 10/10/2022 SUBJECTIVE: This is a 56-year-old woman who was admitted after arthroplasty, had some syncope. The patient has elevated D-dimer and CT angio showed no evidence of pulmonary embolism. 1.5 cm thyroid nodule was noted. Recommend outpatient followup. No chest pain. No palpitation. OBJECTIVE: VITAL SIGNS: Pulse is 88, blood pressure 140/70, and respiration 15. CHEST: Clear to auscultation. CARDIOVASCULAR: S1 and S2. ABDOMEN: Soft. LEGS: Status post surgery. LABORATORY DATA: Noted. ASSESSMENT: 1. Status post right hip arthroplasty. 2. Postoperative nausea, vomiting. 3. Syncope, possibly vasovagal. 4. History of atrial fibrillation. 5. Diabetes mellitus, type 2. 6. Multiple medical issues. 7. 1.4 cm right thyroid nodule. RECOMMENDATIONS AND DISCUSSION: I recommend to continue current medications, continue symptomatic treatment. Otherwise, recommend followup with primary physician in the outpatient setting and rest of the recommendations per Orthopedic Surgery. Further recommendations to follow. MMODL / IJN: [id number] /
== END 2022-10-10 17:45 | disposition home health service (06) ==
LOC: OR 09:08 → 4SSUR 12:29 → OR 10-10 08:38
PROVIDERS: ADMIT Orthopaedic Surgery; ATTEND Orthopaedic Surgery
DX: M16.11 Unilateral primary osteoarthritis, right hip (principal); I11.9 Hypertensive heart disease without heart failure; E78.5 Hyperlipidemia, unspecified; I48.91 Unspecified atrial fibrillation; Z85.820 Personal history of malignant melanoma of skin; K30 Functional dyspepsia; L40.9 Psoriasis, unspecified; R00.2 Palpitations; Z97.3 Presence of spectacles and contact lenses; Z98.891 History of uterine scar from previous surgery; Z82.49 Family history of ischemic heart disease and other diseases of the circulatory system; Z98.890 Other specified postprocedural states; Z87.891 Personal history of nicotine dependence; Z95.5 Presence of coronary angioplasty implant and graft; Z90.710 Acquired absence of both cervix and uterus; Z79.1 Long term (current) use of non-steroidal anti-inflammatories (NSAID); Z79.899 Other long term (current) drug therapy; Z79.01 Long term (current) use of anticoagulants; Z88.5 Allergy status to narcotic agent; Z91.040 Latex allergy status; J30.2 Other seasonal allergic rhinitis
CPT/HCPCS: 97116; 97161; 97535; 97166; 64447; 76942; 86900; 86901; 88305; 80053; 84484; 85025 ×2; 86850; 81001; 88311; 73501; 71045; 71275; 27130; G0378; C1776; J2250; J1100; J0690 ×3; J2405; J3010; J2795; J2370; J2704; C9113 ×3; Q9967

== ENCOUNTER → 2023-04-27 | Outpatient (CLI) | payer BC ==
--- NOTE | 2023-04-30 07:53 | MM ---
Reason for Exam: Screening (asymptomatic). Last mammogram was performed 1 year(s) and 4 month(s) ago. Patient History: Menarche at age 11. First Full-Term at age 20. Left ovary removed at age 51. Right ovary removed at age 51. Hysterectomy at age 47. Postmenopausal. Other cancer, age 46. Patient used Progesterone for 3 years. Hormonal Contraceptives, starting at age 30 for 2 years. Maternal aunt had breast cancer, age 50. Paternal aunt had breast cancer, age 84. Risk Values: Emily 5 year model risk: 1.2%. NCI Lifetime model risk: 6.7%. Prior Study Comparison: 08/09/2020 Left Diagnostic Mammogram, [facility]. 12/19/2020 Bilateral Screening Mammogram, [facility]. 12/31/2021 Bilateral MG 3D screening mammo w/cad, [facility]. Tissue Density: There are scattered fibroglandular densities. Findings: Analyzed By CAD. There is no suspicious group of microcalcifications or new suspicious mass in either breast. Overall Assessment: Negative, BI-RAD 1 Management: Screening Mammogram of both breasts in 1 year. A clinical breast exam by your physician is recommended on an annual basis and results should be correlated with mammographic findings. Note on Emily scores and lifetime risk: 1. A Emily score greater than 3% is considered moderate risk. If this is the case, consider specialist referral to assess eligibility for a risk reducing agent. If overall lifetime risk for the development of breast cancer is 20% or higher, the patient may qualify for future screening with alternating mammogram and breast MRI. Electronically signed and approved by: Aime Leonard D.O.
== END | disposition home or self-care (01) ==
LOC: RADMAMWWP 16:24
PROVIDERS: ATTEND Internal Medicine
DX: Z12.31 Encounter for screening mammogram for malignant neoplasm of breast (principal); Z78.0 Asymptomatic menopausal state; Z80.3 Family history of malignant neoplasm of breast
CPT/HCPCS: 77063; 77067

== ENCOUNTER → 2023-09-01 | Outpatient (CLI) | payer BC ==
--- NOTE | 2023-09-01 10:33 | XR ---
EXAMINATION TYPE: XR thoracic spine 2V DATE OF EXAM: 09/01/2023 9:41 AM CLINICAL INDICATION:Female, 57 years old with history of M54.9 mid back pain; COMPARISON: 12/14/2019 TECHNIQUE: XR thoracic spine 2V views of the spine in Frontal and lateral projections. FINDINGS: No evidence of acute fracture. There is scattered multilevel disk space narrowing without loss of ve rtebral body height. There is normal alignment of the thoracic vertebral bodies. Scattered osteophyte formation along the anterior and lateral aspects of the vertebral bodies. Neural foramen are patent given limitations of this exam. Spinal canal appears patent. IMPRESSION: 1. No acute osseous pathology. 2. Mild degeneration changes of the spine.
--- NOTE | 2023-09-01 10:33 | XR ---
EXAMINATION TYPE: XR cervical spine comp DATE OF EXAM: 09/01/2023 9:41 AM CLINICAL INDICATION:Female, 57 years old with history of M54.2 neck pain; [facility] COMPARISON: 12/14/2019 TECHNIQUE: The cervical spine was imaged in frontal, lateral, odontoid and bilateral oblique. FINDINGS: The osseous structures show normal alignment without evidence of an acute fracture. There are osteoph ytes noted throughout the cervical spine on the anterior and lateral aspects of the vertebral bodies. The intervertebral disk spaces are narrowed at multiple levels. Pedicles are intact. Soft tissues a re within normal limits. The odontoid appears intact. IMPRESSION: 1. No fracture or dislocation. 2. Mild to moderate degenerative disc disease changes of the cervical spine.
--- NOTE | 2023-09-01 16:43 | NM ---
EXAMINATION TYPE: NM hepatobiliary w CCK DATE OF EXAM: 09/01/2023 9:00 AM COMPARISON: CLINICAL INDICATION:Female, 57 years old with history of R10.13 epigastric pain; TECHNIQUE: The patient was given 4.7 mCi of Technetium 99m-Mebrofenin as a radiotracer and multiple scintigraphic images were obtained of the abdomen. Gallbladder function was also assessed after the a dministration of ensure drink and additional scintigraphic images were obtained of the abdomen. A reg ion of interest was drawn over the gallbladder and a timing activity curve was generated. The gallbla dder ejection fraction was calculated. FINDINGS: Normal uptake of radiotracer was identified within the liver with excretion into the hepatic and comm on biliary ducts . There was normal progressive washout of the liver over the course of the study. Ra diotracer uptake within the gallbladder as well as small bowel activity was identified . Maximum calculated gallbladder ejection fraction is: 90% at 30 minutes (Normal gallbladder ejection fraction is > 35%) IMPRESSION: 1. Normal hepatobiliary scan. 2. Normal ejection fraction.
== END | disposition home or self-care (01) ==
LOC: RADNMMAIN 06:35
PROVIDERS: ATTEND Internal Medicine
DX: M50.30 Other cervical disc degeneration, unspecified cervical region (principal); M47.814 Spondylosis without myelopathy or radiculopathy, thoracic region; R10.13 Epigastric pain
CPT/HCPCS: 72070; 72050; 78227; A9537; J2805

== ENCOUNTER → 2023-10-16 | Outpatient (CLI) | payer BC ==
--- NOTE | 2023-10-19 12:09 | PE ---
EXAMINATION TYPE: PET CT fusion whole body DATE OF EXAM: 10/16/2023 COMPARISON: CTA chest 10/10/2022 Prior PET/CT: None at this location HISTORY: Malignant melanoma TECHNIQUE: Following the intravenous administration of 12.58 mCi of F-18 FDG, whole body images are performed from the skull base to the midthigh. Images are reviewed on the computer in the coronal, a xial, and sagittal planes. Reconstructed rotating images are created on independent workstation and reviewed on the computer. A localization and attenuation correction CT is performed in conjunction with the PET scan. DLP: 1095.02 mGycm SCAN: Subsequent Blood glucose: 88 mg/dL Average Mediastinum SUV: 0.58 Average Liver SUV: 2.22 FINDINGS: NECK: No abnormal uptake THORAX: There is a small focus of radiotracer within the right mid thyroid lobe. Image 101, SUV 10.5. Additional workup is recommended. ABDOMEN: No abnormal uptake PELVIS: No abnormal uptake OSSEOUS STRUCTURES: No suspicious uptake Lower extremities: Images were obtained through the bilateral lower extremities to the feet LOCALIZATION CT: No COMPARISON: None available IMPRESSION: 1. No suspicious uptake to suggest primary or metastatic melanoma. 2. There is a small focal area of uptake within the mid right thyroid lobe. Additional evaluation wit h ultrasound is recommended. Neoplasm should be considered.
== END | disposition home or self-care (01) ==
LOC: RADPETMAIN 11:14
PROVIDERS: ATTEND Internal Medicine Critical Care Medicine
DX: C43.9 Malignant melanoma of skin, unspecified (principal)
CPT/HCPCS: 78816; A9552

== ENCOUNTER → 2023-10-20 | Outpatient (CLI) | payer BC ==
--- NOTE | 2023-10-20 22:56 | US ---
EXAMINATION TYPE: US thyroid st tissue head/neck DATE OF EXAM: 10/20/2023 COMPARISON: 10/16/[address] CLINICAL INDICATION: Female, 57 years old with history of R94.6 ABNORMAL THYROID; Uptake seen in righ t lobe on PET CT; Hx Thyroid nodule, ?Hx right nodule with biopsy GLAND SIZE: Right Lobe: 6.1 x 1.7 x 2.2 cm Overall Parenchyma: homogeneous Left Lobe: 6.3 x 1.6 x 1.8 cm Overall Parenchyma: homogeneous Isthmus Thickness: 0.3 cm NODULES RIGHT: # of nodules measured on right: 1 1. 1.5 X 1.7 x 1.8 cm, mid mid, mixed cystic and solid, very hypoechoic nodule, which is wider than tall, with lobulated or irregular margins, with echogenic foci. TR 5. This area correlates with the PET scan. Prior size: NONE LEFT: # of nodules measured on left: 1 1. 1.4 X 0.9 x 1.3 cm, lower medial, mixed cystic and solid, hypoechoic nodule, which is wider than tall, with smooth margins, without echogenic foci. Prior size: NONE ISTHMUS: # of nodules measured in the isthmus: 0 Bilateral neck scanned, no evidence of lymphadenopathy. IMPRESSION: Highly suspicious nodule right lobe thyroid. Fine-needle aspiration recommended 2017 ACR TI-RADS LEVEL: TI-RADS 5 - Highly Suspicious: Follow if > 0.5 cm, FNA if > 1.0 cm *Highest TI-RADS level nodule reported
== END | disposition home or self-care (01) ==
LOC: RADUSWWP 15:07
PROVIDERS: ATTEND Internal Medicine
DX: E04.1 Nontoxic single thyroid nodule (principal)
CPT/HCPCS: 76536

== ENCOUNTER → 2024-04-28 | Outpatient (CLI) | payer BC ==
--- NOTE | 2024-04-29 08:32 | MM ---
Reason for Exam: Screening (asymptomatic). Last screening mammogram was performed 12 month(s) ago. Patient History: Menarche at age 11. First Full-Term at age 20. Left ovary removed at age 51. Right ovary removed at age 51. Hysterectomy at age 47. Postmenopausal. Other cancer, age 46. Patient used Progesterone for 3 years. Hormonal Contraceptives, starting at age 30 for 2 years. Maternal aunt had breast cancer, age 50. Paternal aunt had breast cancer, age 84. Risk Values: Emily 5 year model risk: 1.3%. NCI Lifetime model risk: 6.6%. Prior Study Comparison: 12/19/2020 Bilateral Screening Mammogram, [facility]. 12/31/2021 Bilateral MG 3D screening mammo w/cad, [facility]. 04/27/2023 Bilateral MG 3D screening mammo w/cad, [facility]. Tissue Density: There are scattered areas of fibroglandular density. Findings: Analyzed By CAD. There is no suspicious group of microcalcifications or new suspicious mass in either breast. Overall Assessment: Negative, BI-RAD 1 Management: Screening Mammogram of both breasts in 1 year. . Patient should continue monthly self-breast exams. A clinical breast exam by your physician is recommended on an annual basis. This exam should not preclude additional follow-up of suspicious palpable abnormalities. Note on Emily scores and lifetime risk: 1. A Emily score greater than 3% is considered moderate risk. If this is the case, consider specialist referral to assess eligibility for a risk reducing agent. 2. If overall lifetime risk for the development of breast cancer is 20% or higher, the patient may qualify for future screening with alternating mammogram and breast MRI. [facility], , 04/29/2024 8:28 AM. Electronically signed and approved by: Sam De La Vega M.D. Radiologis
== END | disposition home or self-care (01) ==
LOC: RADMAMWWP 15:00
PROVIDERS: ATTEND Internal Medicine
CPT/HCPCS: 77063; 77067